=== PATIENT | female | born 1930 | race Caucasian/White ===

== ENCOUNTER 2016-09-03 09:57 | Outpatient (CLI) | payer MEDICARE, OTHER ==
[2016-09-03 10:47] LABS: #Monocytes 0.5 thou/uL (0.11-0.59); #Neutrophils 2.3 thou/uL (1.40-6.50); %Basophils 0.9 % (0.0-1.0); %Monocytes 12.6 % (0.0-10.0); Hematocrit 40.8 % (36.0-47.0); Mean Platelet Volume 6.4 fL (7.4-10.4); Red Blood Cell (RBC) Count 4.45 mill/uL (4.20-5.40); White Blood Cell (WBC) Count 3.8 thou/uL (4.8-10.8)
[2016-09-03 11:12] LABS: ALT (SGPT) 20 U/L (0-55); AST (SGOT) 20 U/L (5-34); Alkaline Phosphatase 60 U/L (40-150); Anion Gap 14 mmol/L (10-20); BUN (Urea Nitrogen) 21 mg/dL (9.8-20.1); Bilirubin, Total 0.9 mg/dL (0.2-1.2); Calc. Creatinine Clearance 0 mL/min (70-130); Calcium 9.4 mg/dL (7.8-10.44); Carbon Dioxide 26 mmol/L (23-31); Chloride 106 mmol/L (98-107); Estimated GFR-MDRD 30; Globulin 2.7 g/dL (2.4-3.5); LDL Cholesterol, Calculated 138 mg/dL; Protein, Total 6.7 g/dL (5.8-8.1)
[2016-09-03 12:13] LABS: Hemoglobin A1c 5.5 % (4.0-6.0)
== END 2016-09-03 09:58 | disposition home or self-care (01) ==
LOC: HPCALD 09:57
PROVIDERS: ATTEND Family Medicine
DX: E78.5 Hyperlipidemia, unspecified (principal); R73.03 Prediabetes; I10 Essential (primary) hypertension; E53.8 Deficiency of other specified B group vitamins
CPT/HCPCS: 36415; 80053; 80061; 82607; 83036; 85025

== ENCOUNTER 2016-11-30 08:56 | Outpatient (CLI) | payer MEDICARE, OTHER ==
[2016-11-30 10:20] LABS: ALT (SGPT) 15 U/L (0-55); AST (SGOT) 18 U/L (5-34); Albumin 3.9 g/dL (3.4-4.8); Alkaline Phosphatase 63 U/L (40-150); Anion Gap 16 mmol/L (10-20); BUN (Urea Nitrogen) 25 mg/dL (9.8-20.1); Bilirubin, Total 0.6 mg/dL (0.2-1.2); Calc. Creatinine Clearance 0 mL/min (70-130); Calcium 9.4 mg/dL (7.8-10.44); Carbon Dioxide 23 mmol/L (23-31); Cardiac Risk 4.2 (Less than 4.5); Chloride 106 mmol/L (98-107); Cholesterol 138 mg/dL (< 200 Desired); Estimated GFR-MDRD 34; Globulin 2.6 g/dL (2.4-3.5); Glucose 119 mg/dL (83-110); HDL Cholesterol 33 mg/dL (>60 Neg Risk); LDL Cholesterol, Calculated 82 mg/dL; Potassium 4.8 mmol/L (3.5-5.1); Protein, Total 6.5 g/dL (5.8-8.1); Sodium 140 mmol/L (136-145); Triglycerides 114 mg/dL (Less than 150)
== END 2016-11-30 08:57 | disposition home or self-care (01) ==
LOC: HPCALD 08:56
PROVIDERS: ATTEND Family Medicine
DX: E78.5 Hyperlipidemia, unspecified (principal); E53.8 Deficiency of other specified B group vitamins
CPT/HCPCS: 36415; 80053; 80061; 82607

== ENCOUNTER 2017-01-24 08:26 | Outpatient (CLI) | payer MEDICARE, OTHER ==
[2017-01-24 09:07] LABS: Anion Gap 15 mmol/L (10-20); BUN (Urea Nitrogen) 26 mg/dL (9.8-20.1); Calc. Creatinine Clearance 0 mL/min (70-130); Calcium 9.4 mg/dL (7.8-10.44); Carbon Dioxide 25 mmol/L (23-31); Chloride 106 mmol/L (98-107); Estimated GFR-MDRD 30; Glucose 121 mg/dL (83-110); Potassium 4.7 mmol/L (3.5-5.1); Sodium 141 mmol/L (136-145)
== END 2017-01-24 08:27 | disposition home or self-care (01) ==
LOC: BURLAB 08:26
PROVIDERS: ATTEND Internal Medicine Cardiovascular Disease
DX: I34.0 Nonrheumatic mitral (valve) insufficiency (principal)
CPT/HCPCS: 36415; 80048

== ENCOUNTER 2017-12-28 09:38 | Outpatient (CLI) | payer MEDICARE, BC ==
[2017-12-28 17:55] LABS: Hemoglobin 12.9 g/dL (12.0-16.0)
[2017-12-28 18:18] LABS: Albumin 3.9 g/dL (3.4-4.8); Anion Gap 14 mmol/L (10-20); BUN (Urea Nitrogen) 25 mg/dL (9.8-20.1); Calc. Creatinine Clearance 0 mL/min (70-130); Calcium 9.4 mg/dL (7.8-10.44); Carbon Dioxide 25 mmol/L (23-31); Chloride 106 mmol/L (98-107); Estimated GFR-MDRD 31; Glucose 119 mg/dL (83-110); Phosphorus 3.4 mg/dL (2.3-4.7); Potassium 4.7 mmol/L (3.5-5.1); Sodium 140 mmol/L (136-145)
[2017-12-28 18:19] LABS: Creatinine, Urine 105.12 mg/dL (47-110)
--- NOTE | 2017-12-28 21:25 | ULT ---
BILATERAL RENAL ULTRASOUND: 12/28/17 Ultrasonography of urinary tract was performed in this patient with chronic kidney disease. Multiple slices were obtained. The cortex around the right kidney is somewhat thin. There is no sign of solid mass or hydronephrosis , but a 2 cm cyst appears to be attached to this kidney. The left kidney has more normal appearing co rtex. No mass or obstruction was seen. The right kidney is 7.5 cm long and the left is 10.5 cm. The urinary bladder was not well visualized. No gross defects were seen within it, but the sensitivit y is quite low. The wall was slightly thick at 3 mm, however, it is not fully distended, so this find ing is equivocal at best. IMPRESSION: 1. Mild cortical thinning in the right kidney. Slightly smaller kidney than the left. 2 cm cyst. 2. No evidence of urinary tract obstruction. POS: HOME
[2017-12-30 15:40] LABS: ANA Symphony (Qualitative) Negative (Negative); ANA Symphony (Quantitative) Less than 0.07 Ratio (<0.7 Negative); dsDNA IgG Antibody 4.9 IU/mL (<10 Negative)
== END 2017-12-28 09:39 | disposition home or self-care (01) ==
LOC: BURULT 09:38
PROVIDERS: ATTEND Internal Medicine Nephrology
DX: I12.9 Hypertensive chronic kidney disease with stage 1 through stage 4 chronic kidney disease, or unspecified chronic kidney disease (principal); N18.4 Chronic kidney disease, stage 4 (severe); R80.9 Proteinuria, unspecified; N28.89 Other specified disorders of kidney and ureter
CPT/HCPCS: 36415; 76770; 80048; 82040; 82306; 82570; 83970; 84100; 84156; 85014; 85018; 86038; 86225

== ENCOUNTER 2018-06-19 12:44 | Emergency (ER) | payer MEDICARE, BC ==
[2018-06-19] MEDS ORDERED: Acetaminophen 500 MG TAB ONE (14:06)
--- NOTE | 2018-06-19 18:43 | RAD ---
LEFT KNEE FOUR VIEWS: 06/19/2018 FINDINGS: Medial joint space narrowing is present, as well as a few osteophytes. No fracture or large joint ef fusion is seen. The bony structures all appear intact. IMPRESSION: Moderate osteoarthritis of the left knee, predominantly medial compartment. POS: HOME
== END 2018-06-19 14:11 | disposition home or self-care (01) ==
LOC: BURERS 12:44
DX: M17.12 Unilateral primary osteoarthritis, left knee (principal); I10 Essential (primary) hypertension; E78.5 Hyperlipidemia, unspecified; Z79.891 Long term (current) use of opiate analgesic; Z79.899 Other long term (current) drug therapy

== ENCOUNTER 2018-12-13 16:02 | Inpatient (IN) | payer MEDICARE, BC ==
[2018-12-13] MEDS ORDERED: Acetaminophen 500 MG TAB ONE ×2 (20:19→20:20)
[2018-12-14] MEDS ORDERED: Carvedilol 3.125 MG TAB PO ONE ×2 (09:00→21:00)
[2018-12-14] MEDS ORDERED: Multivit, Therapeutic 1 TAB PO SCH (09:00)
[2018-12-14] MEDS ORDERED: Saccharomyces boulardii 250 MG CAP PO ONE (09:00)
[2018-12-14] MEDS ORDERED: Losartan Potassium 50 MG TAB PO ONE ×2 (09:00→21:00)
[2018-12-14] MEDS ORDERED: Ezetimibe 10 MG TAB PO ONE (09:00)
[2018-12-14] MEDS ORDERED: Clopidogrel Bisulfate 75 MG TAB PO ONE (09:00)
[2018-12-14] MEDS ORDERED: Furosemide 20 MG TAB PO ONE (09:00)
[2018-12-14] MEDS ORDERED: Multivitamin W/ Minerals 1 TAB PO ONE (09:00)
[2018-12-14] MEDS ORDERED: Cefdinir 300 MG CAP PO ONE (09:00)
[2018-12-14] MEDS ORDERED: Clindamycin 150 MG CAP PO ONE ×2 (14:00→22:00)
[2018-12-14] MEDS ORDERED: Acetaminophen 500 MG TAB PO ONE ×2 (14:02→20:22)
[2018-12-15] MEDS: Clindamycin 150 MG CAP PO SCH ×4 (05:49→20:47)
[2018-12-15] MEDS: Carvedilol 3.125 MG TAB PO SCH ×3 (09:23→20:47)
[2018-12-15] MEDS: Cefdinir 300 MG CAP PO SCH (09:25)
[2018-12-15] MEDS: Clopidogrel Bisulfate 75 MG TAB PO SCH ×2 (09:25→15:42)
[2018-12-15] MEDS: Losartan Potassium 50 MG TAB PO SCH ×3 (09:27→20:48)
[2018-12-15] MEDS: Furosemide 20 MG TAB PO SCH ×2 (09:27→15:42)
[2018-12-15] MEDS: Multivitamin W/ Minerals 1 TAB PO SCH (09:29)
[2018-12-15] MEDS: PITAVASTATIN CALCIUM 1 MG PO SCH ×2 (09:30→15:43)
[2018-12-15] MEDS: [UNRECOGNIZED DRUG - OTHER] EA EYE SCH ×2 (09:32→15:43)
[2018-12-15] MEDS: SODIUM CHLORIDE 5% EA EYE SCH ×2 (09:32→15:43)
[2018-12-15] MEDS: Saccharomyces boulardii 250 MG CAP PO SCH ×2 (09:32→15:43)
[2018-12-15] MEDS: Polyethylene Glycol 3350 17 GM Packet PO SCH (09:33)
[2018-12-15] MEDS: Ezetimibe 10 MG TAB PO SCH (15:42)
[2018-12-15] MEDS: Acetaminophen 500 MG TAB PO PRN (20:48)
[2018-12-16] MEDS: Clindamycin 150 MG CAP PO SCH ×4 (04:38→21:33)
[2018-12-16] MEDS: Carvedilol 3.125 MG TAB PO SCH ×3 (04:38→21:33)
[2018-12-16] MEDS: Multivitamin W/ Minerals 1 TAB PO SCH (08:15)
[2018-12-16] MEDS: Saccharomyces boulardii 250 MG CAP PO SCH (08:16)
[2018-12-16] MEDS: Ezetimibe 10 MG TAB PO SCH (08:16)
[2018-12-16] MEDS: Furosemide 20 MG TAB PO SCH (08:16)
[2018-12-16] MEDS: Losartan Potassium 50 MG TAB PO SCH ×2 (08:17→21:33)
[2018-12-16] MEDS: Clopidogrel Bisulfate 75 MG TAB PO SCH (08:17)
[2018-12-16] MEDS: Cefdinir 300 MG CAP PO SCH (08:17)
[2018-12-16] MEDS: PITAVASTATIN CALCIUM 1 MG PO SCH (08:20)
[2018-12-16] MEDS: [UNRECOGNIZED DRUG - OTHER] EA EYE SCH (08:21)
[2018-12-16] MEDS: SODIUM CHLORIDE 5% EA EYE SCH (08:21)
[2018-12-16] MEDS: Polyethylene Glycol 3350 17 GM Packet PO SCH (08:22)
[2018-12-16] MEDS: Senokot S 8.6-50 MG TAB PO SCH ×2 (13:55→21:34)
[2018-12-16] MEDS: Acetaminophen 500 MG TAB PO PRN (16:35)
[2018-12-16] MEDS: Nystatin Powder 15 GM BOT TOP PRN (21:32)
[2018-12-17] MEDS: Clindamycin 150 MG CAP PO SCH ×3 (05:32→21:27)
[2018-12-17] MEDS: Multivitamin W/ Minerals 1 TAB PO SCH (09:54)
[2018-12-17] MEDS: SODIUM CHLORIDE 5% EA EYE SCH (09:54)
[2018-12-17] MEDS: Clopidogrel Bisulfate 75 MG TAB PO SCH (09:54)
[2018-12-17] MEDS: Senokot S 8.6-50 MG TAB PO SCH ×2 (09:54→21:28)
[2018-12-17] MEDS: Polyethylene Glycol 3350 17 GM Packet PO SCH (09:54)
[2018-12-17] MEDS: Saccharomyces boulardii 250 MG CAP PO SCH (09:54)
[2018-12-17] MEDS: [UNRECOGNIZED DRUG - OTHER] EA EYE SCH (09:54)
[2018-12-17] MEDS: Ezetimibe 10 MG TAB PO SCH (09:56)
[2018-12-17] MEDS: Carvedilol 3.125 MG TAB PO SCH ×2 (10:02→21:27)
[2018-12-17] MEDS: Furosemide 20 MG TAB PO SCH (10:03)
[2018-12-17] MEDS: Losartan Potassium 50 MG TAB PO SCH ×2 (10:03→21:28)
[2018-12-17] MEDS: Famotidine 20 MG TAB PO SCH (21:28)
[2018-12-18 05:35] LABS: ALT (SGPT) 27 U/L (8-55); AST (SGOT) 29 U/L (5-34); Albumin 3.1 g/dL (3.4-4.8); Alkaline Phosphatase 56 U/L (40-150); Anion Gap 12 mmol/L (10-20); BUN (Urea Nitrogen) 35 mg/dL (9.8-20.1); Bilirubin, Total 1.1 mg/dL (0.2-1.2); Calc. Creatinine Clearance 36 mL/min (70-130); Calcium 9.1 mg/dL (7.8-10.44); Carbon Dioxide 30 mmol/L (23-31); Chloride 96 mmol/L (98-107); Estimated GFR-MDRD 29; Globulin 2.7 g/dL (2.4-3.5); Glucose 119 mg/dL (83-110); Potassium 4.2 mmol/L (3.5-5.1); Protein, Total 5.8 g/dL (6.0-8.3); Sodium 134 mmol/L (136-145)
[2018-12-18] MEDS: Clindamycin 150 MG CAP PO SCH ×3 (05:38→20:34)
[2018-12-18 05:48] LABS: Hemoglobin 11.5 g/dL (12.0-16.0); Lymphocytes 24 % (21-51); MDiff Complete? YES; Mean Corpuscular HGB CONC 32.4 g/dL (32.0-36.0); Mean Corpuscular Hemoglobin 29.8 pg (27.0-31.0); Mean Corpuscular Volume 92.1 fL (78.0-98.0); Mean Platelet Volume 6.6 fL (7.4-10.4); Monocytes 10 % (0-10); Neutrophil 64 % (42-75); Platelet Count 139 thou/uL (130-400); Platelet Morphology Comment Appears Decreased; RBC Distribution Width 11.7 % (11.5-14.5); RBC Morphology Normal; Red Blood Cell (RBC) Count 3.86 mill/uL (4.20-5.40); White Blood Cell (WBC) Count 6.4 thou/uL (4.8-10.8)
[2018-12-18] MEDS: Ezetimibe 10 MG TAB PO SCH (08:48)
[2018-12-18] MEDS: Saccharomyces boulardii 250 MG CAP PO SCH (08:48)
[2018-12-18] MEDS: Carvedilol 3.125 MG TAB PO SCH ×2 (08:48→20:34)
[2018-12-18] MEDS: Acetaminophen 500 MG TAB PO PRN ×2 (08:48→20:33)
[2018-12-18] MEDS: Multivitamin W/ Minerals 1 TAB PO SCH (08:49)
[2018-12-18] MEDS: Senokot S 8.6-50 MG TAB PO SCH ×2 (08:49→20:35)
[2018-12-18] MEDS: Calcitriol 0.25 MCG CAP PO SCH (08:49)
[2018-12-18] MEDS: Furosemide 20 MG TAB PO SCH (08:49)
[2018-12-18] MEDS: Clopidogrel Bisulfate 75 MG TAB PO SCH (08:49)
[2018-12-18] MEDS: Polyethylene Glycol 3350 17 GM Packet PO SCH (08:49)
[2018-12-18] MEDS: Losartan Potassium 50 MG TAB PO SCH ×2 (08:49→20:34)
[2018-12-18] MEDS: Famotidine 20 MG TAB PO SCH ×2 (08:50→20:34)
[2018-12-18] MEDS: PITAVASTATIN CALCIUM 2 MG PO SCH (08:57)
[2018-12-18] MEDS: SODIUM CHLORIDE 5% EA EYE SCH (08:58)
[2018-12-18] MEDS: [UNRECOGNIZED DRUG - OTHER] EA EYE SCH (08:58)
[2018-12-18] MEDS: Nystatin Powder 15 GM BOT TOP PRN ×2 (09:00→09:01)
[2018-12-19] MEDS: Clindamycin 150 MG CAP PO SCH ×3 (05:54→21:21)
[2018-12-19] MEDS: Milk Of Magnesia 30 ML UDCUP PO PRN (07:35)
[2018-12-19] MEDS: Multivitamin W/ Minerals 1 TAB PO SCH (08:55)
[2018-12-19] MEDS: Famotidine 20 MG TAB PO SCH ×2 (08:55→21:22)
[2018-12-19] MEDS: Acetaminophen 500 MG TAB PO PRN ×2 (08:55→21:21)
[2018-12-19] MEDS: Senokot S 8.6-50 MG TAB PO SCH ×2 (08:55→21:21)
[2018-12-19] MEDS: Carvedilol 3.125 MG TAB PO SCH ×2 (08:55→21:21)
[2018-12-19] MEDS: Ezetimibe 10 MG TAB PO SCH (08:55)
[2018-12-19] MEDS: Saccharomyces boulardii 250 MG CAP PO SCH (08:55)
[2018-12-19] MEDS: Clopidogrel Bisulfate 75 MG TAB PO SCH (08:55)
[2018-12-19] MEDS: [UNRECOGNIZED DRUG - OTHER] EA EYE SCH (08:56)
[2018-12-19] MEDS: SODIUM CHLORIDE 5% EA EYE SCH (08:56)
[2018-12-19] MEDS: Furosemide 20 MG TAB PO SCH (08:56)
[2018-12-19] MEDS: Polyethylene Glycol 3350 17 GM Packet PO SCH (08:56)
[2018-12-19] MEDS: PITAVASTATIN CALCIUM 2 MG PO SCH (08:57)
[2018-12-19] MEDS: Losartan Potassium 50 MG TAB PO SCH ×2 (08:59→21:22)
[2018-12-19] MEDS ORDERED: Fleet Enema 133 ML BOT PR SCH (10:45)
[2018-12-20] MEDS: Clindamycin 150 MG CAP PO SCH ×3 (05:30→22:12)
[2018-12-20] MEDS: Ezetimibe 10 MG TAB PO SCH (09:16)
[2018-12-20] MEDS: Saccharomyces boulardii 250 MG CAP PO SCH (09:17)
[2018-12-20] MEDS: Clopidogrel Bisulfate 75 MG TAB PO SCH (09:17)
[2018-12-20] MEDS: Calcitriol 0.25 MCG CAP PO SCH (09:18)
[2018-12-20] MEDS: Famotidine 20 MG TAB PO SCH ×2 (09:18→20:34)
[2018-12-20] MEDS: Carvedilol 3.125 MG TAB PO SCH ×2 (09:19→20:34)
[2018-12-20] MEDS: Losartan Potassium 50 MG TAB PO SCH ×2 (09:20→20:35)
[2018-12-20] MEDS: Senokot S 8.6-50 MG TAB PO SCH ×2 (09:21→20:35)
[2018-12-20] MEDS: Multivitamin W/ Minerals 1 TAB PO SCH (09:21)
[2018-12-20] MEDS: Furosemide 20 MG TAB PO SCH (09:21)
[2018-12-20] MEDS: Polyethylene Glycol 3350 17 GM Packet PO SCH (09:26)
[2018-12-20] MEDS: PITAVASTATIN CALCIUM 2 MG PO SCH ×2 (09:38→20:32)
[2018-12-20] MEDS: Milk Of Magnesia 30 ML UDCUP PO PRN (09:38)
[2018-12-20] MEDS: [UNRECOGNIZED DRUG - OTHER] EA EYE SCH (09:39)
[2018-12-20] MEDS: SODIUM CHLORIDE 5% EA EYE SCH (09:39)
[2018-12-20] MEDS: Acetaminophen 500 MG TAB PO PRN (20:34)
[2018-12-21] MEDS: Carvedilol 3.125 MG TAB PO SCH ×2 (08:29→20:26)
[2018-12-21] MEDS: Saccharomyces boulardii 250 MG CAP PO SCH (08:29)
[2018-12-21] MEDS: Multivitamin W/ Minerals 1 TAB PO SCH (08:29)
[2018-12-21] MEDS: Ezetimibe 10 MG TAB PO SCH (08:29)
[2018-12-21] MEDS: Famotidine 20 MG TAB PO SCH ×2 (08:30→20:27)
[2018-12-21] MEDS: Losartan Potassium 50 MG TAB PO SCH ×2 (08:30→20:27)
[2018-12-21] MEDS: Clopidogrel Bisulfate 75 MG TAB PO SCH (08:31)
[2018-12-21] MEDS: [UNRECOGNIZED DRUG - OTHER] EA EYE SCH (08:34)
[2018-12-21] MEDS: SODIUM CHLORIDE 5% EA EYE SCH (08:34)
[2018-12-21] MEDS: Senokot S 8.6-50 MG TAB PO SCH ×2 (14:36→20:34)
[2018-12-21] MEDS: Polyethylene Glycol 3350 17 GM Packet PO SCH (15:33)
[2018-12-21] MEDS: Furosemide 20 MG TAB PO SCH (15:33)
[2018-12-21] MEDS: Acetaminophen 500 MG TAB PO PRN (20:27)
[2018-12-21] MEDS: PITAVASTATIN CALCIUM 2 MG PO SCH (20:34)
[2018-12-22] MEDS: Famotidine 20 MG TAB PO SCH ×2 (08:35→20:06)
[2018-12-22] MEDS: Clopidogrel Bisulfate 75 MG TAB PO SCH (08:35)
[2018-12-22] MEDS: Saccharomyces boulardii 250 MG CAP PO SCH (08:35)
[2018-12-22] MEDS: Senokot S 8.6-50 MG TAB PO SCH ×2 (08:35→20:07)
[2018-12-22] MEDS: Furosemide 20 MG TAB PO SCH (08:35)
[2018-12-22] MEDS: Ezetimibe 10 MG TAB PO SCH (08:35)
[2018-12-22] MEDS: Calcitriol 0.25 MCG CAP PO SCH (08:36)
[2018-12-22] MEDS: Losartan Potassium 50 MG TAB PO SCH ×2 (08:36→20:06)
[2018-12-22] MEDS: Carvedilol 3.125 MG TAB PO SCH ×2 (08:37→20:06)
[2018-12-22] MEDS: Multivitamin W/ Minerals 1 TAB PO SCH (08:37)
[2018-12-22] MEDS: Polyethylene Glycol 3350 17 GM Packet PO SCH (08:40)
[2018-12-22] MEDS: SODIUM CHLORIDE 5% EA EYE SCH (08:42)
[2018-12-22] MEDS: [UNRECOGNIZED DRUG - OTHER] EA EYE SCH (08:42)
[2018-12-22] MEDS: Nystatin Powder 15 GM BOT TOP PRN (08:56)
[2018-12-22] MEDS: Acetaminophen 500 MG TAB PO PRN ×2 (13:48→20:06)
[2018-12-22] MEDS: PITAVASTATIN CALCIUM 2 MG PO SCH (20:07)
[2018-12-23] MEDS: Polyethylene Glycol 3350 17 GM Packet PO SCH (08:00)
[2018-12-23] MEDS: Losartan Potassium 50 MG TAB PO SCH ×2 (08:02→20:52)
[2018-12-23] MEDS: Saccharomyces boulardii 250 MG CAP PO SCH (08:02)
[2018-12-23] MEDS: [UNRECOGNIZED DRUG - OTHER] EA EYE SCH (08:02)
[2018-12-23] MEDS: Acetaminophen 500 MG TAB PO PRN ×2 (08:02→20:51)
[2018-12-23] MEDS: Carvedilol 3.125 MG TAB PO SCH ×2 (08:02→20:51)
[2018-12-23] MEDS: SODIUM CHLORIDE 5% EA EYE SCH (08:02)
[2018-12-23] MEDS: Multivitamin W/ Minerals 1 TAB PO SCH (08:02)
[2018-12-23] MEDS: Furosemide 20 MG TAB PO SCH (08:03)
[2018-12-23] MEDS: Clopidogrel Bisulfate 75 MG TAB PO SCH (08:03)
[2018-12-23] MEDS: Senokot S 8.6-50 MG TAB PO SCH ×2 (08:03→20:51)
[2018-12-23] MEDS: Famotidine 20 MG TAB PO SCH ×2 (08:03→20:51)
[2018-12-23] MEDS: Ezetimibe 10 MG TAB PO SCH (08:05)
[2018-12-23] MEDS: PITAVASTATIN CALCIUM 2 MG PO SCH (20:52)
[2018-12-24] MEDS: Losartan Potassium 50 MG TAB PO SCH ×2 (08:21→20:13)
[2018-12-24] MEDS: Senokot S 8.6-50 MG TAB PO SCH ×2 (08:21→20:14)
[2018-12-24] MEDS: Furosemide 20 MG TAB PO SCH (08:21)
[2018-12-24] MEDS: Saccharomyces boulardii 250 MG CAP PO SCH (08:21)
[2018-12-24] MEDS: Acetaminophen 500 MG TAB PO PRN ×2 (08:21→20:13)
[2018-12-24] MEDS: Polyethylene Glycol 3350 17 GM Packet PO SCH (08:21)
[2018-12-24] MEDS: Ezetimibe 10 MG TAB PO SCH (08:22)
[2018-12-24] MEDS: Multivitamin W/ Minerals 1 TAB PO SCH (08:22)
[2018-12-24] MEDS: Famotidine 20 MG TAB PO SCH ×2 (08:22→20:14)
[2018-12-24] MEDS: Clopidogrel Bisulfate 75 MG TAB PO SCH (08:23)
[2018-12-24] MEDS: [UNRECOGNIZED DRUG - OTHER] EA EYE SCH (08:23)
[2018-12-24] MEDS: Carvedilol 3.125 MG TAB PO SCH ×2 (08:23→20:15)
[2018-12-24] MEDS: SODIUM CHLORIDE 5% EA EYE SCH (08:23)
[2018-12-24] MEDS: PITAVASTATIN CALCIUM 2 MG PO SCH (20:24)
[2018-12-25] MEDS: Clopidogrel Bisulfate 75 MG TAB PO SCH (09:04)
[2018-12-25] MEDS: Senokot S 8.6-50 MG TAB PO SCH ×2 (09:04→20:40)
[2018-12-25] MEDS: Famotidine 20 MG TAB PO SCH ×2 (09:04→20:38)
[2018-12-25] MEDS: Polyethylene Glycol 3350 17 GM Packet PO SCH (09:04)
[2018-12-25] MEDS: Carvedilol 3.125 MG TAB PO SCH ×2 (09:04→20:38)
[2018-12-25] MEDS: Ezetimibe 10 MG TAB PO SCH (09:04)
[2018-12-25] MEDS: Losartan Potassium 50 MG TAB PO SCH ×2 (09:05→20:38)
[2018-12-25] MEDS: Acetaminophen 500 MG TAB PO PRN ×2 (09:05→20:38)
[2018-12-25] MEDS: Multivitamin W/ Minerals 1 TAB PO SCH (09:05)
[2018-12-25] MEDS: [UNRECOGNIZED DRUG - OTHER] EA EYE SCH (09:06)
[2018-12-25] MEDS: SODIUM CHLORIDE 5% EA EYE SCH (09:06)
[2018-12-25] MEDS: Saccharomyces boulardii 250 MG CAP PO SCH (09:06)
[2018-12-25] MEDS: Furosemide 20 MG TAB PO SCH (09:06)
[2018-12-25] MEDS: Calcitriol 0.25 MCG CAP PO SCH (09:09)
[2018-12-25] MEDS: PITAVASTATIN CALCIUM 2 MG PO SCH (20:39)
[2018-12-26] MEDS: Senokot S 8.6-50 MG TAB PO SCH ×2 (09:13→20:26)
[2018-12-26] MEDS: Acetaminophen 500 MG TAB PO PRN ×2 (09:13→20:26)
[2018-12-26] MEDS: Saccharomyces boulardii 250 MG CAP PO SCH (09:13)
[2018-12-26] MEDS: Multivitamin W/ Minerals 1 TAB PO SCH (09:13)
[2018-12-26] MEDS: Clopidogrel Bisulfate 75 MG TAB PO SCH (09:13)
[2018-12-26] MEDS: Furosemide 20 MG TAB PO SCH (09:13)
[2018-12-26] MEDS: Carvedilol 3.125 MG TAB PO SCH ×2 (09:14→20:26)
[2018-12-26] MEDS: Famotidine 20 MG TAB PO SCH ×2 (09:14→20:26)
[2018-12-26] MEDS: Losartan Potassium 50 MG TAB PO SCH ×2 (09:14→20:26)
[2018-12-26] MEDS: Ezetimibe 10 MG TAB PO SCH (09:15)
[2018-12-26] MEDS: [UNRECOGNIZED DRUG - OTHER] EA EYE SCH (09:15)
[2018-12-26] MEDS: SODIUM CHLORIDE 5% EA EYE SCH (09:15)
[2018-12-26] MEDS: Polyethylene Glycol 3350 17 GM Packet PO SCH (09:16)
[2018-12-26] MEDS: CAMPHO PHENIQUE TOP PRN (09:30)
[2018-12-26] MEDS ORDERED: Triple Antibiotic Oint 1 GM Packet TOP PRN (15:25)
[2018-12-26] MEDS: Nystatin Powder 15 GM BOT TOP PRN (20:25)
[2018-12-26] MEDS: PITAVASTATIN CALCIUM 2 MG PO SCH (20:27)
[2018-12-27] MEDS ORDERED: Cyanocobalamin 1000 MCG/ML VIAL IM SCH (08:00)
[2018-12-27] MEDS: Ezetimibe 10 MG TAB PO SCH (09:17)
[2018-12-27] MEDS: Carvedilol 3.125 MG TAB PO SCH ×2 (09:17→22:28)
[2018-12-27] MEDS: Calcitriol 0.25 MCG CAP PO SCH (09:17)
[2018-12-27] MEDS: Saccharomyces boulardii 250 MG CAP PO SCH (09:18)
[2018-12-27] MEDS: Multivitamin W/ Minerals 1 TAB PO SCH (09:18)
[2018-12-27] MEDS: Clopidogrel Bisulfate 75 MG TAB PO SCH (09:18)
[2018-12-27] MEDS: Losartan Potassium 50 MG TAB PO SCH ×2 (09:18→20:42)
[2018-12-27] MEDS: Senokot S 8.6-50 MG TAB PO SCH ×2 (09:18→20:42)
[2018-12-27] MEDS: Famotidine 20 MG TAB PO SCH ×2 (09:19→20:42)
[2018-12-27] MEDS: Polyethylene Glycol 3350 17 GM Packet PO SCH (09:19)
[2018-12-27] MEDS: Triple Antibiotic Oint 1 GM Packet TOP SCH (09:19)
[2018-12-27] MEDS: Furosemide 20 MG TAB PO SCH (09:19)
[2018-12-27] MEDS: SODIUM CHLORIDE 5% EA EYE SCH (09:28)
[2018-12-27] MEDS: [UNRECOGNIZED DRUG - OTHER] EA EYE SCH (09:28)
[2018-12-27] MEDS: Acetaminophen 500 MG TAB PO PRN (20:42)
[2018-12-27] MEDS: PITAVASTATIN CALCIUM 2 MG PO SCH (20:43)
[2018-12-28] MEDS: Famotidine 20 MG TAB PO SCH ×2 (08:47→20:49)
[2018-12-28] MEDS: Senokot S 8.6-50 MG TAB PO SCH ×2 (08:47→20:49)
[2018-12-28] MEDS: Losartan Potassium 50 MG TAB PO SCH ×2 (08:48→20:49)
[2018-12-28] MEDS: Saccharomyces boulardii 250 MG CAP PO SCH (08:48)
[2018-12-28] MEDS: Clopidogrel Bisulfate 75 MG TAB PO SCH (08:48)
[2018-12-28] MEDS: Multivitamin W/ Minerals 1 TAB PO SCH (08:48)
[2018-12-28] MEDS: Furosemide 20 MG TAB PO SCH (08:49)
[2018-12-28] MEDS: Ezetimibe 10 MG TAB PO SCH (08:49)
[2018-12-28] MEDS: Carvedilol 3.125 MG TAB PO SCH ×2 (08:49→20:48)
[2018-12-28] MEDS: Polyethylene Glycol 3350 17 GM Packet PO SCH (08:50)
[2018-12-28] MEDS: [UNRECOGNIZED DRUG - OTHER] EA EYE SCH (08:50)
[2018-12-28] MEDS: SODIUM CHLORIDE 5% EA EYE SCH (08:50)
[2018-12-28] MEDS: Triple Antibiotic Oint 1 GM Packet TOP SCH (08:50)
[2018-12-28] MEDS: Acetaminophen 500 MG TAB PO PRN (20:48)
[2018-12-28] MEDS: CAMPHO PHENIQUE TOP PRN (20:51)
[2018-12-28] MEDS: PITAVASTATIN CALCIUM 2 MG PO SCH (20:55)
[2018-12-29] MEDS: Polyethylene Glycol 3350 17 GM Packet PO SCH (08:57)
[2018-12-29] MEDS: Losartan Potassium 50 MG TAB PO SCH ×2 (08:58→20:41)
[2018-12-29] MEDS: Calcitriol 0.25 MCG CAP PO SCH (08:59)
[2018-12-29] MEDS: Multivitamin W/ Minerals 1 TAB PO SCH (08:59)
[2018-12-29] MEDS: Clopidogrel Bisulfate 75 MG TAB PO SCH (08:59)
[2018-12-29] MEDS: Ezetimibe 10 MG TAB PO SCH (08:59)
[2018-12-29] MEDS: Famotidine 20 MG TAB PO SCH ×2 (09:00→20:41)
[2018-12-29] MEDS: Senokot S 8.6-50 MG TAB PO SCH ×2 (09:00→20:41)
[2018-12-29] MEDS: Carvedilol 3.125 MG TAB PO SCH ×2 (09:00→20:42)
[2018-12-29] MEDS: Saccharomyces boulardii 250 MG CAP PO SCH (09:01)
[2018-12-29] MEDS: Furosemide 20 MG TAB PO SCH (09:01)
[2018-12-29] MEDS: Triple Antibiotic Oint 1 GM Packet TOP SCH (09:02)
[2018-12-29] MEDS: [UNRECOGNIZED DRUG - OTHER] EA EYE SCH (09:04)
[2018-12-29] MEDS: SODIUM CHLORIDE 5% EA EYE SCH (09:04)
[2018-12-29] MEDS: Nystatin Powder 15 GM BOT TOP PRN (16:10)
[2018-12-29] MEDS: Acetaminophen 500 MG TAB PO PRN (20:41)
[2018-12-29] MEDS: PITAVASTATIN CALCIUM 2 MG PO SCH (21:30)
[2018-12-30] MEDS: Losartan Potassium 50 MG TAB PO SCH ×2 (08:50→20:05)
[2018-12-30] MEDS: Carvedilol 3.125 MG TAB PO SCH ×2 (08:51→20:04)
[2018-12-30] MEDS: Famotidine 20 MG TAB PO SCH ×2 (08:51→20:04)
[2018-12-30] MEDS: Multivitamin W/ Minerals 1 TAB PO SCH (08:51)
[2018-12-30] MEDS: Saccharomyces boulardii 250 MG CAP PO SCH (08:51)
[2018-12-30] MEDS: Ezetimibe 10 MG TAB PO SCH (08:51)
[2018-12-30] MEDS: Clopidogrel Bisulfate 75 MG TAB PO SCH (08:51)
[2018-12-30] MEDS: Polyethylene Glycol 3350 17 GM Packet PO SCH (08:52)
[2018-12-30] MEDS: Senokot S 8.6-50 MG TAB PO SCH ×2 (08:52→20:04)
[2018-12-30] MEDS: Furosemide 20 MG TAB PO SCH (08:52)
[2018-12-30] MEDS: Triple Antibiotic Oint 1 GM Packet TOP SCH (08:55)
[2018-12-30] MEDS: [UNRECOGNIZED DRUG - OTHER] EA EYE SCH (09:12)
[2018-12-30] MEDS: SODIUM CHLORIDE 5% EA EYE SCH (09:12)
[2018-12-30] MEDS: Acetaminophen 500 MG TAB PO PRN (20:04)
[2018-12-30] MEDS: Nystatin Powder 15 GM BOT TOP PRN (20:04)
[2018-12-30] MEDS: PITAVASTATIN CALCIUM 2 MG PO SCH (22:42)
[2018-12-31] MEDS: Clopidogrel Bisulfate 75 MG TAB PO SCH (08:40)
[2018-12-31] MEDS: Saccharomyces boulardii 250 MG CAP PO SCH (08:40)
[2018-12-31] MEDS: Senokot S 8.6-50 MG TAB PO SCH ×2 (08:40→20:24)
[2018-12-31] MEDS: Ezetimibe 10 MG TAB PO SCH (08:40)
[2018-12-31] MEDS: Acetaminophen 500 MG TAB PO PRN ×2 (08:40→20:23)
[2018-12-31] MEDS: Losartan Potassium 50 MG TAB PO SCH ×2 (08:41→20:23)
[2018-12-31] MEDS: Carvedilol 3.125 MG TAB PO SCH ×2 (08:41→20:23)
[2018-12-31] MEDS: Famotidine 20 MG TAB PO SCH ×2 (08:42→20:24)
[2018-12-31] MEDS: Multivitamin W/ Minerals 1 TAB PO SCH (08:42)
[2018-12-31] MEDS: Furosemide 20 MG TAB PO SCH (08:42)
[2018-12-31] MEDS: Polyethylene Glycol 3350 17 GM Packet PO SCH (08:49)
[2018-12-31] MEDS: SODIUM CHLORIDE 5% EA EYE SCH (08:50)
[2018-12-31] MEDS: [UNRECOGNIZED DRUG - OTHER] EA EYE SCH (08:50)
[2018-12-31] MEDS: Triple Antibiotic Oint 1 GM Packet TOP SCH (10:38)
[2018-12-31] MEDS: PITAVASTATIN CALCIUM 2 MG PO SCH (20:24)
[2019-01-01] MEDS: Carvedilol 3.125 MG TAB PO SCH ×2 (08:54→20:20)
[2019-01-01] MEDS: Acetaminophen 500 MG TAB PO PRN ×2 (08:55→20:20)
[2019-01-01] MEDS: Losartan Potassium 50 MG TAB PO SCH ×2 (08:55→20:21)
[2019-01-01] MEDS: Calcitriol 0.25 MCG CAP PO SCH (08:55)
[2019-01-01] MEDS: Saccharomyces boulardii 250 MG CAP PO SCH (08:55)
[2019-01-01] MEDS: Furosemide 20 MG TAB PO SCH (08:55)
[2019-01-01] MEDS: Senokot S 8.6-50 MG TAB PO SCH ×2 (08:55→20:38)
[2019-01-01] MEDS: Famotidine 20 MG TAB PO SCH ×2 (08:56→20:21)
[2019-01-01] MEDS: Clopidogrel Bisulfate 75 MG TAB PO SCH (08:56)
[2019-01-01] MEDS: Ezetimibe 10 MG TAB PO SCH (08:56)
[2019-01-01] MEDS: Multivitamin W/ Minerals 1 TAB PO SCH (08:56)
[2019-01-01] MEDS: Polyethylene Glycol 3350 17 GM Packet PO SCH (08:57)
[2019-01-01] MEDS: SODIUM CHLORIDE 5% EA EYE SCH (09:02)
[2019-01-01] MEDS: [UNRECOGNIZED DRUG - OTHER] EA EYE SCH (09:02)
[2019-01-01] MEDS: Triple Antibiotic Oint 1 GM Packet TOP SCH (09:05)
[2019-01-01] MEDS: Ubidecarenone 50 MG CAP PO SCH (20:20)
[2019-01-01] MEDS: PITAVASTATIN CALCIUM 2 MG PO SCH (20:38)
[2019-01-02] MEDS: Famotidine 20 MG TAB PO SCH ×2 (08:12→20:46)
[2019-01-02] MEDS: Saccharomyces boulardii 250 MG CAP PO SCH (08:12)
[2019-01-02] MEDS: Carvedilol 3.125 MG TAB PO SCH ×2 (08:13→20:46)
[2019-01-02] MEDS: Furosemide 20 MG TAB PO SCH (08:13)
[2019-01-02] MEDS: Ezetimibe 10 MG TAB PO SCH (08:13)
[2019-01-02] MEDS: Acetaminophen 500 MG TAB PO PRN ×2 (08:13→20:46)
[2019-01-02] MEDS: Clopidogrel Bisulfate 75 MG TAB PO SCH (08:13)
[2019-01-02] MEDS: Multivitamin W/ Minerals 1 TAB PO SCH (08:14)
[2019-01-02] MEDS: Losartan Potassium 50 MG TAB PO SCH ×2 (08:14→20:46)
[2019-01-02] MEDS: Senokot S 8.6-50 MG TAB PO SCH ×2 (08:15→20:46)
[2019-01-02] MEDS: Triple Antibiotic Oint 1 GM Packet TOP SCH (08:15)
[2019-01-02] MEDS: Polyethylene Glycol 3350 17 GM Packet PO SCH (08:15)
[2019-01-02] MEDS: [UNRECOGNIZED DRUG - OTHER] EA EYE SCH (08:21)
[2019-01-02] MEDS: SODIUM CHLORIDE 5% EA EYE SCH (08:21)
[2019-01-02] MEDS: Nystatin Powder 15 GM BOT TOP PRN (08:25)
[2019-01-02] MEDS: Ubidecarenone 50 MG CAP PO SCH (20:45)
[2019-01-02] MEDS: PITAVASTATIN CALCIUM 2 MG PO SCH (20:47)
[2019-01-03] MEDS: Furosemide 20 MG TAB PO SCH (08:46)
[2019-01-03] MEDS: Saccharomyces boulardii 250 MG CAP PO SCH (08:47)
[2019-01-03] MEDS: Famotidine 20 MG TAB PO SCH ×2 (08:47→20:24)
[2019-01-03] MEDS: Ezetimibe 10 MG TAB PO SCH (08:47)
[2019-01-03] MEDS: Calcitriol 0.25 MCG CAP PO SCH (08:49)
[2019-01-03] MEDS: Polyethylene Glycol 3350 17 GM Packet PO SCH (08:49)
[2019-01-03] MEDS: Losartan Potassium 50 MG TAB PO SCH ×2 (08:49→20:24)
[2019-01-03] MEDS: Clopidogrel Bisulfate 75 MG TAB PO SCH (08:49)
[2019-01-03] MEDS: Carvedilol 3.125 MG TAB PO SCH ×2 (08:50→20:25)
[2019-01-03] MEDS: Multivitamin W/ Minerals 1 TAB PO SCH (08:50)
[2019-01-03] MEDS: Senokot S 8.6-50 MG TAB PO SCH ×2 (08:50→20:24)
[2019-01-03] MEDS: [UNRECOGNIZED DRUG - OTHER] EA EYE SCH (08:56)
[2019-01-03] MEDS: SODIUM CHLORIDE 5% EA EYE SCH (08:56)
[2019-01-03] MEDS: Triple Antibiotic Oint 1 GM Packet TOP SCH (08:56)
[2019-01-03] MEDS: Acetaminophen 500 MG TAB PO PRN (20:24)
[2019-01-03] MEDS: Ubidecarenone 50 MG CAP PO SCH (20:24)
[2019-01-03] MEDS: PITAVASTATIN CALCIUM 2 MG PO SCH (20:50)
[2019-01-04] MEDS: Clopidogrel Bisulfate 75 MG TAB PO SCH (08:47)
[2019-01-04] MEDS: Polyethylene Glycol 3350 17 GM Packet PO SCH (08:47)
[2019-01-04] MEDS: Furosemide 20 MG TAB PO SCH (08:47)
[2019-01-04] MEDS: Senokot S 8.6-50 MG TAB PO SCH ×2 (08:47→20:23)
[2019-01-04] MEDS: Saccharomyces boulardii 250 MG CAP PO SCH (08:47)
[2019-01-04] MEDS: Losartan Potassium 50 MG TAB PO SCH ×2 (08:48→20:24)
[2019-01-04] MEDS: Famotidine 20 MG TAB PO SCH ×2 (08:49→20:24)
[2019-01-04] MEDS: Carvedilol 3.125 MG TAB PO SCH ×2 (08:49→20:24)
[2019-01-04] MEDS: Multivitamin W/ Minerals 1 TAB PO SCH (08:49)
[2019-01-04] MEDS: Ezetimibe 10 MG TAB PO SCH (08:49)
[2019-01-04] MEDS: Milk Of Magnesia 30 ML UDCUP PO PRN (08:52)
[2019-01-04] MEDS: Triple Antibiotic Oint 1 GM Packet TOP SCH (08:56)
[2019-01-04] MEDS: [UNRECOGNIZED DRUG - OTHER] EA EYE SCH (09:10)
[2019-01-04] MEDS: SODIUM CHLORIDE 5% EA EYE SCH (09:10)
[2019-01-04] MEDS: Acetaminophen 500 MG TAB PO PRN (20:23)
[2019-01-04] MEDS: Ubidecarenone 50 MG CAP PO SCH (20:24)
[2019-01-04] MEDS: PITAVASTATIN CALCIUM 2 MG PO SCH (20:26)
[2019-01-05] MEDS: Saccharomyces boulardii 250 MG CAP PO SCH (09:12)
[2019-01-05] MEDS: Clopidogrel Bisulfate 75 MG TAB PO SCH ×2 (09:12→09:16)
[2019-01-05] MEDS: Calcitriol 0.25 MCG CAP PO SCH (09:13)
[2019-01-05] MEDS: Losartan Potassium 50 MG TAB PO SCH ×2 (09:13→20:27)
[2019-01-05] MEDS: Polyethylene Glycol 3350 17 GM Packet PO SCH (09:15)
[2019-01-05] MEDS: Ezetimibe 10 MG TAB PO SCH (09:16)
[2019-01-05] MEDS: Multivitamin W/ Minerals 1 TAB PO SCH (09:16)
[2019-01-05] MEDS: Senokot S 8.6-50 MG TAB PO SCH ×2 (09:16→20:26)
[2019-01-05] MEDS: Famotidine 20 MG TAB PO SCH ×2 (09:16→20:26)
[2019-01-05] MEDS: Furosemide 20 MG TAB PO SCH (09:17)
[2019-01-05] MEDS: Carvedilol 3.125 MG TAB PO SCH ×2 (09:17→20:26)
[2019-01-05] MEDS: Triple Antibiotic Oint 1 GM Packet TOP SCH (09:18)
[2019-01-05] MEDS: [UNRECOGNIZED DRUG - OTHER] EA EYE SCH (09:18)
[2019-01-05] MEDS: SODIUM CHLORIDE 5% EA EYE SCH (09:18)
[2019-01-05] MEDS: Acetaminophen 500 MG TAB PO PRN (20:26)
[2019-01-05] MEDS: Ubidecarenone 50 MG CAP PO SCH (20:26)
[2019-01-05] MEDS: PITAVASTATIN CALCIUM 2 MG PO SCH (20:43)
[2019-01-06] MEDS: Senokot S 8.6-50 MG TAB PO SCH ×2 (09:19→20:24)
[2019-01-06] MEDS: Acetaminophen 500 MG TAB PO PRN ×2 (09:19→20:23)
[2019-01-06] MEDS: Carvedilol 3.125 MG TAB PO SCH ×2 (09:19→20:24)
[2019-01-06] MEDS: Saccharomyces boulardii 250 MG CAP PO SCH (09:19)
[2019-01-06] MEDS: Multivitamin W/ Minerals 1 TAB PO SCH (09:19)
[2019-01-06] MEDS: Furosemide 20 MG TAB PO SCH (09:19)
[2019-01-06] MEDS: Losartan Potassium 50 MG TAB PO SCH ×2 (09:20→20:24)
[2019-01-06] MEDS: Famotidine 20 MG TAB PO SCH ×2 (09:20→20:24)
[2019-01-06] MEDS: Ezetimibe 10 MG TAB PO SCH (09:21)
[2019-01-06] MEDS: Triple Antibiotic Oint 1 GM Packet TOP SCH (09:21)
[2019-01-06] MEDS: Polyethylene Glycol 3350 17 GM Packet PO SCH (09:21)
[2019-01-06] MEDS: SODIUM CHLORIDE 5% EA EYE SCH (09:22)
[2019-01-06] MEDS: CAMPHO PHENIQUE TOP PRN (09:22)
[2019-01-06] MEDS: [UNRECOGNIZED DRUG - OTHER] EA EYE SCH (09:22)
[2019-01-06] MEDS: Ubidecarenone 50 MG CAP PO SCH (20:24)
[2019-01-06] MEDS: PITAVASTATIN CALCIUM 2 MG PO SCH (20:25)
[2019-01-07] MEDS: [UNRECOGNIZED DRUG - OTHER] EA EYE SCH (08:43)
[2019-01-07] MEDS: SODIUM CHLORIDE 5% EA EYE SCH (08:43)
[2019-01-07] MEDS: Carvedilol 3.125 MG TAB PO SCH ×2 (08:44→20:36)
[2019-01-07] MEDS: Furosemide 20 MG TAB PO SCH (08:44)
[2019-01-07] MEDS: Losartan Potassium 50 MG TAB PO SCH ×2 (08:44→20:35)
[2019-01-07] MEDS: Saccharomyces boulardii 250 MG CAP PO SCH (08:44)
[2019-01-07] MEDS: Multivitamin W/ Minerals 1 TAB PO SCH (08:45)
[2019-01-07] MEDS: Famotidine 20 MG TAB PO SCH ×2 (08:45→20:34)
[2019-01-07] MEDS: Clopidogrel Bisulfate 75 MG TAB PO SCH (08:45)
[2019-01-07] MEDS: Senokot S 8.6-50 MG TAB PO SCH ×2 (08:45→20:36)
[2019-01-07] MEDS: Polyethylene Glycol 3350 17 GM Packet PO SCH (08:45)
[2019-01-07] MEDS: Ezetimibe 10 MG TAB PO SCH (08:45)
[2019-01-07] MEDS: Triple Antibiotic Oint 1 GM Packet TOP SCH (08:45)
[2019-01-07] MEDS: Acetaminophen 500 MG TAB PO PRN ×2 (08:45→20:33)
[2019-01-07] MEDS: Ubidecarenone 50 MG CAP PO SCH (20:35)
[2019-01-07] MEDS: PITAVASTATIN CALCIUM 2 MG PO SCH (20:39)
[2019-01-08 04:49] VITALS: BMI 39.2
[2019-01-08] MEDS: Saccharomyces boulardii 250 MG CAP PO SCH (08:31)
[2019-01-08] MEDS: [UNRECOGNIZED DRUG - OTHER] EA EYE SCH (08:31)
[2019-01-08] MEDS: SODIUM CHLORIDE 5% EA EYE SCH (08:31)
[2019-01-08] MEDS: Polyethylene Glycol 3350 17 GM Packet PO SCH (08:31)
[2019-01-08] MEDS: Acetaminophen 500 MG TAB PO PRN ×2 (08:31→20:06)
[2019-01-08] MEDS: Furosemide 20 MG TAB PO SCH (08:32)
[2019-01-08] MEDS: Famotidine 20 MG TAB PO SCH ×2 (08:32→20:07)
[2019-01-08] MEDS: Carvedilol 3.125 MG TAB PO SCH ×2 (08:32→20:07)
[2019-01-08] MEDS: Calcitriol 0.25 MCG CAP PO SCH (08:32)
[2019-01-08] MEDS: Ezetimibe 10 MG TAB PO SCH (08:33)
[2019-01-08] MEDS: Losartan Potassium 50 MG TAB PO SCH ×2 (08:33→20:06)
[2019-01-08] MEDS: Senokot S 8.6-50 MG TAB PO SCH ×2 (08:33→20:08)
[2019-01-08] MEDS: Clopidogrel Bisulfate 75 MG TAB PO SCH (08:33)
[2019-01-08] MEDS: Multivitamin W/ Minerals 1 TAB PO SCH (08:33)
[2019-01-08] MEDS: Ubidecarenone 50 MG CAP PO SCH (20:06)
[2019-01-08] MEDS: PITAVASTATIN CALCIUM 2 MG PO SCH (20:07)
[2019-01-08] MEDS: Nystatin Powder 15 GM BOT TOP PRN (20:19)
[2019-01-09] MEDS: SODIUM CHLORIDE 5% EA EYE SCH (08:43)
[2019-01-09] MEDS: [UNRECOGNIZED DRUG - OTHER] EA EYE SCH (08:43)
[2019-01-09] MEDS: Polyethylene Glycol 3350 17 GM Packet PO SCH (08:43)
[2019-01-09] MEDS: Carvedilol 3.125 MG TAB PO SCH ×2 (08:44→20:30)
[2019-01-09] MEDS: Saccharomyces boulardii 250 MG CAP PO SCH (08:44)
[2019-01-09] MEDS: Losartan Potassium 50 MG TAB PO SCH ×2 (08:45→20:30)
[2019-01-09] MEDS: Clopidogrel Bisulfate 75 MG TAB PO SCH (08:45)
[2019-01-09] MEDS: Famotidine 20 MG TAB PO SCH ×2 (08:45→20:30)
[2019-01-09] MEDS: Multivitamin W/ Minerals 1 TAB PO SCH (08:45)
[2019-01-09] MEDS: Senokot S 8.6-50 MG TAB PO SCH ×2 (08:45→20:30)
[2019-01-09] MEDS: Acetaminophen 500 MG TAB PO PRN ×2 (08:45→20:29)
[2019-01-09] MEDS: Ezetimibe 10 MG TAB PO SCH (08:45)
[2019-01-09] MEDS: Furosemide 20 MG TAB PO SCH (08:45)
[2019-01-09] MEDS: CAMPHO PHENIQUE TOP PRN (08:50)
[2019-01-09] MEDS: Ubidecarenone 50 MG CAP PO SCH (20:30)
[2019-01-09] MEDS: PITAVASTATIN CALCIUM 2 MG PO SCH (20:31)
[2019-01-10] MEDS: Furosemide 20 MG TAB PO SCH (08:46)
[2019-01-10] MEDS: Losartan Potassium 50 MG TAB PO SCH ×2 (08:46→20:22)
[2019-01-10] MEDS: Ezetimibe 10 MG TAB PO SCH (08:46)
[2019-01-10] MEDS: Calcitriol 0.25 MCG CAP PO SCH (08:47)
[2019-01-10] MEDS: Senokot S 8.6-50 MG TAB PO SCH ×2 (08:47→20:22)
[2019-01-10] MEDS: Multivitamin W/ Minerals 1 TAB PO SCH (08:47)
[2019-01-10] MEDS: Clopidogrel Bisulfate 75 MG TAB PO SCH (08:47)
[2019-01-10] MEDS: Saccharomyces boulardii 250 MG CAP PO SCH (08:47)
[2019-01-10] MEDS: Carvedilol 3.125 MG TAB PO SCH ×2 (08:47→20:22)
[2019-01-10] MEDS: Famotidine 20 MG TAB PO SCH ×2 (08:47→20:22)
[2019-01-10] MEDS: Polyethylene Glycol 3350 17 GM Packet PO SCH (08:48)
[2019-01-10] MEDS: Acetaminophen 500 MG TAB PO PRN ×2 (08:52→20:21)
[2019-01-10] MEDS: SODIUM CHLORIDE 5% EA EYE SCH (08:53)
[2019-01-10] MEDS: [UNRECOGNIZED DRUG - OTHER] EA EYE SCH (08:53)
[2019-01-10] MEDS: Ubidecarenone 50 MG CAP PO SCH (20:22)
[2019-01-10] MEDS: PITAVASTATIN CALCIUM 2 MG PO SCH (20:23)
[2019-01-11] MEDS: Carvedilol 3.125 MG TAB PO SCH ×2 (08:48→20:25)
[2019-01-11] MEDS: Clopidogrel Bisulfate 75 MG TAB PO SCH (08:48)
[2019-01-11] MEDS: Furosemide 20 MG TAB PO SCH (08:48)
[2019-01-11] MEDS: Saccharomyces boulardii 250 MG CAP PO SCH (08:48)
[2019-01-11] MEDS: Senokot S 8.6-50 MG TAB PO SCH ×2 (08:49→20:25)
[2019-01-11] MEDS: Acetaminophen 500 MG TAB PO PRN ×2 (08:49→20:24)
[2019-01-11] MEDS: Losartan Potassium 50 MG TAB PO SCH ×2 (08:50→20:25)
[2019-01-11] MEDS: Famotidine 20 MG TAB PO SCH ×2 (08:51→20:25)
[2019-01-11] MEDS: Multivitamin W/ Minerals 1 TAB PO SCH (08:51)
[2019-01-11] MEDS: Polyethylene Glycol 3350 17 GM Packet PO SCH (08:51)
[2019-01-11] MEDS: Ezetimibe 10 MG TAB PO SCH (08:51)
[2019-01-11] MEDS: SODIUM CHLORIDE 5% EA EYE SCH (08:56)
[2019-01-11] MEDS: [UNRECOGNIZED DRUG - OTHER] EA EYE SCH (08:56)
[2019-01-11] MEDS: Ubidecarenone 50 MG CAP PO SCH (20:24)
[2019-01-11] MEDS: PITAVASTATIN CALCIUM 2 MG PO SCH (21:43)
[2019-01-12 06:17] VITALS: BP 120/56; TEMP 98.4
[2019-01-12] MEDS: Saccharomyces boulardii 250 MG CAP PO SCH (08:52)
[2019-01-12] MEDS: Polyethylene Glycol 3350 17 GM Packet PO SCH (08:52)
[2019-01-12] MEDS: Clopidogrel Bisulfate 75 MG TAB PO SCH (08:53)
[2019-01-12] MEDS: Furosemide 20 MG TAB PO SCH (08:53)
[2019-01-12] MEDS: Famotidine 20 MG TAB PO SCH (08:54)
[2019-01-12] MEDS: Carvedilol 3.125 MG TAB PO SCH (08:54)
[2019-01-12] MEDS: Calcitriol 0.25 MCG CAP PO SCH (08:55)
[2019-01-12] MEDS: Senokot S 8.6-50 MG TAB PO SCH (08:55)
[2019-01-12] MEDS: Multivitamin W/ Minerals 1 TAB PO SCH (08:55)
[2019-01-12] MEDS: Ezetimibe 10 MG TAB PO SCH (08:55)
[2019-01-12] MEDS: Losartan Potassium 50 MG TAB PO SCH (08:55)
[2019-01-12] MEDS: SODIUM CHLORIDE 5% EA EYE SCH (09:04)
[2019-01-12] MEDS: [UNRECOGNIZED DRUG - OTHER] EA EYE SCH (09:04)
--- NOTE | 2019-01-13 05:34 | DIS ---
DATE OF ADMISSION: 12/13/2018 DATE OF DISCHARGE: 01/12/2019 ADMISSION DIAGNOSES: Status post acute right parietal CVA, physical deconditioning, systolic congestive heart failure, status post AICD placement, urinary tract infection, hypertension, dyslipidemia, vitamin B12 deficiency, chronic kidney disease stage 4. PROCEDURES: None. HOSPITAL COURSE: An 88-year-old female, transitioned to our facility, status post admission at [facility] in [place], where she was admitted from 12/08/2018 to 12/13/2018. She had presented there with left-sided weakness and a fall and was subsequently found per MRI of the brain to have a right parietal lobe infarct. Also during her stay, an echocardiogram was done showing ejection fraction of 20% to 25% with moderate mitral regurgitation, moderate aortic regurgitation , and severe tricuspid regurgitation, and due to pt's cardiomyopathy, the patient had implantation of an AICD via Dr. Jim. She ultimately transitioned to our facility to participate with physical therapy and occupational therapy. While here, she did complete her prophylactic antibiotics, status post AICD placement. In addition to this, she completed antibiotics for urinary tract infection. She had no significant setbacks during her stay and steadily improved in regard to her physical conditioning. She has been set up with home health as a transition of care to continue her therapy going forward. In addition to this, her son will be staying with her until other definitive plans may be made. DISPOSITION: The patient will discharge home, where her son will be staying with her and have [facility] for further therapy. She is to follow up with Dr. Duran and Dr. Rachel as scheduled. She may follow up with myself in the clinic in 1 week. DISCHARGE MEDICATIONS: Include: 1. Livalo 1 mg daily. 2. Tylenol p.r.n. 3. Calcitriol 0.25 mcg three times a week. 4. Plavix 75 mg daily. 5. Zetia 10 mg daily. 6. Lasix 20 mg daily. 7. Losartan 25 mg b.i.d. 8. Daily multivitamin. 9. Sodium chloride eyedrops daily. 10. Coenzyme Q10, 100 mg daily. Job ID: [id number] [facility]
== END 2019-01-12 11:30 | disposition home health service (06) | DRG 65 ==
LOC: BURMED 16:35
PROVIDERS: ADMIT Family Medicine; ATTEND Family Medicine
DX: I63.9 Cerebral infarction, unspecified (principal); I50.20 Unspecified systolic (congestive) heart failure; N39.0 Urinary tract infection, site not specified; I13.0 Hypertensive heart and chronic kidney disease with heart failure and stage 1 through stage 4 chronic kidney disease, or unspecified chronic kidney disease; N18.4 Chronic kidney disease, stage 4 (severe); I42.9 Cardiomyopathy, unspecified; E78.5 Hyperlipidemia, unspecified; E53.8 Deficiency of other specified B group vitamins; R53.81 Other malaise; I08.3 Combined rheumatic disorders of mitral, aortic and tricuspid valves; Z95.810 Presence of automatic (implantable) cardiac defibrillator
CPT/HCPCS: 36415; 80053; 85025; J3420

== ENCOUNTER 2019-08-08 09:29 | Emergency (ER) | payer MEDICARE, BC ==
--- NOTE | 2019-08-08 10:20 | CT ---
CT Stroke Protocol History: Left-sided numbness. Comparison: MRI brain November 2018 Findings: Encephalomalacia right posterior MCA territory from prior infarction seen November 2018. Old b ilateral lacunar infarcts. No acute hemorrhage. No midline shift or mass effect. No definite new territorial infarction. Old left thalamic infarction. Subtle hypodensity left marito li tereso artifactual. Paranasal sinuses and mastoids are clear. The calvarium is intact. Impression: Chronic findings. No acute definite territorial infarct or hemorrhage.
[2019-08-08 10:46] LABS: #Lymphocytes 0.6 thou/uL (1.20-3.40); #Monocytes 0.4 thou/uL (0.11-0.59); %Basophils 1.1 % (0.0-1.0); %Lymphocytes 14.1 % (21.0-51.0); %Neutrophils 74.8 % (42.0-75.0); Hemoglobin 11.4 g/dL (12.0-16.0); Mean Corpuscular HGB CONC 31.3 g/dL (32.0-36.0); Mean Corpuscular Hemoglobin 28.3 pg (27.0-31.0); Mean Corpuscular Volume 90.3 fL (78.0-98.0); Mean Platelet Volume 6.6 fL (7.4-10.4); Platelet Count 167 thou/uL (130-400); Red Blood Cell (RBC) Count 4.04 mill/uL (4.20-5.40)
[2019-08-08 10:49] LABS: INR-International Normal Ratio 1.1; PTT 24.7 SEC (22.9-36.1); Prothrombin Time 13.7 SEC (12.0-14.7)
[2019-08-08 10:57] LABS: ALT (SGPT) 12 U/L (8-55); AST (SGOT) 22 U/L (5-34); Albumin 3.8 g/dL (3.4-4.8); Alkaline Phosphatase 59 U/L (40-110); Anion Gap 17 mmol/L (10-20); BUN (Urea Nitrogen) 24 mg/dL (9.8-20.1); Bilirubin, Total 0.8 mg/dL (0.2-1.2); Calc. Creatinine Clearance 0 mL/min (70-130); Calcium 9.9 mg/dL (7.8-10.44); Carbon Dioxide 25 mmol/L (23-31); Chloride 102 mmol/L (98-107); Estimated GFR-MDRD 28; Glucose 115 mg/dL (83-110); Potassium 4.8 mmol/L (3.5-5.1); Protein, Total 6.8 g/dL (6.0-8.3); Sodium 139 mmol/L (136-145)
[2019-08-08 11:15] LABS: CKMB 1.4 ng/mL (0-6.6)
--- NOTE | 2019-08-08 18:00 | RAD ---
PORTABLE CHEST: 08/08/19 An AP portable film at 1031 is compared with a 12/13/18 study. Mild to moderate cardiomegaly is about the same as before. There is no pulmonary edema or large pleur al effusion. There is minimal prominence of the vessels but not enough to confidently diagnose a boy estive change. The cardiac pacer remains in place. IMPRESSION: Cardiomegaly. POS: HOME
== END 2019-08-08 11:52 | disposition short-term general hospital (02) ==
LOC: BURERS 09:29
DX: I63.9 Cerebral infarction, unspecified (principal); I25.10 Atherosclerotic heart disease of native coronary artery without angina pectoris; E78.5 Hyperlipidemia, unspecified
CPT/HCPCS: 36416; 70450; 71045; 80053; 82553; 84484; 85025; 85610; 85730; 93005